=== PATIENT | male | born 1945 | race African-American/Black ===

== ENCOUNTER 2018-03-26 15:36 | Emergency (ER) | payer MEDICARE, MEDICAID ==
[~2018-03-26] VITALS: Ht 180.3 cm; Wt 85.3 kg
[~2018-03-26 15:36] MED LIST: ASPI-1152 PO; ATOR10TA PO; GLIP10TA11 PO; LISI-603 PO; METF-440 PO; TAMS0.4C34 PO
--- NOTE | 2018-03-26 15:41 | NUR ---
BIB SELF, W C/O R HIP PAIN. "THE PAIN STARTED 2 YEARS AGO AND IT GRADUALLY GETS WORSE AND TODAY I CAN HARDLY WALK", WHILE WALKING YESTERDAY, SLIPPED AND FELL. TO ER BED 10, HOOKED TO MONITOR, AWAITING MD LAL
[2018-03-26] MEDS ORDERED: HYDROCODONE/APAP 5/325MG 1 EACH TABLET PO ONE (16:00)
[2018-03-26] MEDS ORDERED: HYDROCODONE/APAP 5/325MG 1 EACH TABLET ONE (16:02)
[2018-03-26 17:00] VITALS: BP 118/70
== END 2018-03-26 17:13 | disposition home or self-care (01) ==
LOC: ER 15:38
DX: M25.551 Pain in right hip (principal); I10 Essential (primary) hypertension; E11.9 Type 2 diabetes mellitus without complications; F32.9 Major depressive disorder, single episode, unspecified; F17.200 Nicotine dependence, unspecified, uncomplicated; Z96.653 Presence of artificial knee joint, bilateral; Z96.643 Presence of artificial hip joint, bilateral; Z79.82 Long term (current) use of aspirin; Z79.84 Long term (current) use of oral hypoglycemic drugs; Z79.899 Other long term (current) drug therapy; W01.198A Fall on same level from slipping, tripping and stumbling with subsequent striking against other object, initial encounter; Y93.89 Activity, other specified; Y92.89 Other specified places as the place of occurrence of the external cause; Y99.8 Other external cause status
CPT/HCPCS: 73502; A4606; Z7610

== ENCOUNTER 2018-05-13 14:04 | Emergency (ER) | payer MEDICAID, MEDICARE ==
[~2018-05-13] VITALS: Ht 182.9 cm; Wt 81.2 kg
[2018-05-13 14:23] VITALS: BP 127/68
[2018-05-13] MEDS ORDERED: HYDROCODONE/APAP 5/325MG 1 EACH TABLET PO ONE (15:00)
[2018-05-13] MEDS ORDERED: HYDROCODONE/APAP 5/325MG 1 EACH TABLET ONE (15:06)
== END 2018-05-13 16:34 | disposition home or self-care (01) ==
LOC: ER 14:10
DX: S20.212A Contusion of left front wall of thorax, initial encounter (principal); I10 Essential (primary) hypertension; E11.9 Type 2 diabetes mellitus without complications; F32.9 Major depressive disorder, single episode, unspecified; F17.200 Nicotine dependence, unspecified, uncomplicated; Z98.890 Other specified postprocedural states; Z79.82 Long term (current) use of aspirin; W22.8XXA Striking against or struck by other objects, initial encounter; Y93.01 Activity, walking, marching and hiking; Y92.89 Other specified places as the place of occurrence of the external cause; Y99.8 Other external cause status
CPT/HCPCS: 71100-TC

== ENCOUNTER 2018-05-16 23:33 | Inpatient (IN) | payer MEDICARE ==
[~2018-05-16] VITALS: Ht 182.9 cm; Wt 81.6 kg
--- NOTE | 2018-05-17 00:30 | NUR ---
PT BBSELF C/O OF CHRONIC HIP PAIN. PT STATES HE HAS NO HOME AND WILL HURT HIMSELF BY OVERDOSING ON DRUGS IF HE GOES BACK TO THE STREETS. PT DENIES HI, DENIES HEARING VOICES. HE STATES HE HAS BEEN OFF HIS MEDS FOR A FEW WEEKS. NO S/S OF ACUTE DISTRESS. RR EVEN AND UNLABORED. PT PLACED ON MONITOR AND POX. PT SAFETY AND COMFORT IN PLACE. SI PRECAUTIONS IN PLACE. WILL CONTINUE TO MONITOR PT. AWAITING MD FOR HALI
--- NOTE | 2018-05-17 00:34 | NUR ---
BEDSIDE FOR EVAL
[2018-05-17 01:51] LABS: EOSINOPHILS % (AUTO) 10.2 % (0.0-6.0); HEMATOCRIT 33 % (39-51); HEMOGLOBIN 10.6 g/dL (13.5-17.5); LYMPHOCYTES % (AUTO) 30.6 % (20.0-44.0); MEAN CORPUSCULAR HGB CONC 32 g/dl (31.0-36.0); MEAN CORPUSCULAR VOLUME 80 fL (80-96); MONOCYTES # (AUTO) 2.8 /CMM (0.1-1.30); MONOCYTES % (AUTO) 42.9 % (2.0-12.0); NEUTROPHILS # (AUTO) 1.1 /CMM (1.8-8.9); NEUTROPHILS % (AUTO) 16.3 % (43.0-81.0); PLATELET COUNT (AUTO) 255 /CMM (150-450); RED BLOOD CELL COUNT(AUTO) 4.17 MIL/uL (4.5-6.0); WHITE BLOOD COUNT (AUTO) 6.6 K/uL (4.3-11.0)
[2018-05-17 02:03] LABS: CALCIUM, SERUM 8.8 mg/dL (8.5-10.1); CARBON DIOXIDE 26 mmol/L (21-32); CHLORIDE 107 mmol/L (98-107); CREATININE 1.3 mg/dL (0.6-1.3); GLUCOSE 140 mg/dL (74-106); POTASSIUM 3.6 mmol/L (3.5-5.1); SODIUM SERUM 142 mmol/L (136-145); UREA NITROGEN, BLOOD 30 mg/dL (7-18)
[2018-05-17 02:12] LABS: APPEARANCE,URINE CLEAR (CLEAR); BILIRUBIN,URINE NEGATIVE (NEGATIVE); BLOOD, URINE TRACE Ery/uL (NEGATIVE); COLOR,URINE YELLOW (YELLOW); KETONES,URINE TRACE (NEGATIVE); LEUKOCYTE ESTERASE ,URINE NEGATIVE (NEGATIVE); NITRITE, URINE NEGATIVE (NEGATIVE); PH,URINE 5.5 (5.0-8.0); PROTEIN,URINE 1+ mg/dl (NEGATIVE); UGLUCOSE NEGATIVE (NEGATIVE); UROBILINOGEN,URINE 0.2 EU/dL (0.2)
[2018-05-17 02:17] LABS: ALANINE AMINOTRANSFERASE 27 U/L (12-78); ALBUMIN 3.7 g/dL (3.4-5.0); ALCOHOL, BLOOD < 3 mg/dL (0-0); ALKALINE PHOSPHATASE 75 U/L (46-116); ASPARTATE AMINOTRANSFERASE 41 U/L (15-37); BILIRUBIN,DIRECT 0.1 mg/dL (0.0-0.2); BILIRUBIN,TOTAL 0.5 mg/dL (0.2-1.0); TOTAL PROTEIN, SERUM 7.2 g/dL (6.4-8.2)
[2018-05-17 02:18] LABS: SALICYLATE 1.1 mg/dL (2.8-20.0)
[2018-05-17 02:19] LABS: ACETAMINOPHEN 0 ug/ml (10-30)
[2018-05-17 02:52] LABS: BACTERIA,URINE Few /HPF (None Seen); RBC,URINE 0-2 /HPF (0-2); SQUAMOUS EPITHELIAL CELL,UR Rare /HPF (None Seen); WBC,URINE 0-2 /HPF (0-3)
--- NOTE | 2018-05-17 03:10 | NUR ---
Patient is resting comfortably in bed with eyes closed. Easily aroused. VSS
--- NOTE | 2018-05-17 05:00 | NUR ---
PSYCHIATRIC ERADICATOR BEDSIDE WITH PT
--- NOTE | 2018-05-17 05:50 | NUR ---
Patient is resting comfortably in bed with eyes closed. Easily aroused. VSS
--- NOTE | 2018-05-17 07:32 | NUR ---
REPORT GIVEN TO ENERGY MANAGER EDSEL FOR M[facility]ER[facility].
--- NOTE | 2018-05-17 07:33 | NUR ---
REPORT GIVEN TO GOLDIE MCALLISTER FOR [facility]
[2018-05-17 08:00] VITALS: BP_SYST 126; BP_SYST 149; BP_DIAS 70; BP_DIAS 91
[2018-05-17] MEDS ORDERED: MAGNESIUM HYDROXIDE 30 ML UDC PO PRN (09:00)
[2018-05-17] MEDS ORDERED: MAG HYDROX/AL HYDROX/SIMETH 30 ML UDC PO PRN (09:00)
[2018-05-17] MEDS ORDERED: ACETAMINOPHEN 325 MG TABLET PO PRN (09:00)
[2018-05-17] MEDS ORDERED: TEMAZEPAM 7.5 MG CAPSULE PO PRN (09:00)
[2018-05-17] MEDS ORDERED: clonazePAM 0.5 MG TABLET PO PRN (09:00)
[2018-05-17 16:00] VITALS: BP 125/59
--- NOTE | 2018-05-17 16:15 | NUR ---
GPS RN NOTE PER MESHA JENSEN, LIU HE WILL DO HOME MEDICATION RECON
[2018-05-17] MEDS ORDERED: DEXTROSE 50%-WATER 50 ML DISP.SYRIN IV PRN (18:00)
[2018-05-17 20:14] VITALS: BP 127/72
[2018-05-17] MEDS: BLOOD SUGAR DIAGNOSTIC 1 EACH STRIP IN SCH (20:49)
[2018-05-17] MEDS: INSULIN REGULAR, HUMAN 100 UNIT/ML 3 ML VIAL SQ PRN (20:53)
[2018-05-17] MEDS ORDERED: QUETIAPINE FUMARATE 100 MG TABLET PO SCH (22:00)
[2018-05-18] MEDS: BLOOD SUGAR DIAGNOSTIC 1 EACH STRIP IN SCH ×2 (07:48→12:41)
[2018-05-18 08:00] VITALS: BP 139/66
[2018-05-18] MEDS ORDERED: LISINOPRIL (20MG) 20 MG TABLET PO SCH (09:00)
[2018-05-18] MEDS ORDERED: QUETIAPINE FUMARATE 25 MG TABLET PO SCH (09:00)
[2018-05-18] MEDS ORDERED: SERTRALINE HCL 50 MG TABLET PO SCH (09:00)
[2018-05-18] MEDS ORDERED: METFORMIN 500 MG TABLET PO SCH (09:00)
[2018-05-18] MEDS ORDERED: ASPIRIN EC 81 MG TABLET.DR PO SCH (09:00)
[2018-05-18] MEDS ORDERED: TAMSULOSIN 0.4 MG CAP.SR.24H PO SCH (09:00)
[2018-05-18] MEDS ORDERED: glipiZIDE 10 MG TABLET PO SCH (09:00)
[2018-05-18] MEDS: INSULIN REGULAR, HUMAN 100 UNIT/ML 3 ML VIAL SQ PRN (09:03)
--- NOTE | 2018-05-18 11:32 | NUR ---
INITIAL DISCHARGE PLAN: Patient will be discharged to a homeless detention as pt has zero days all the way cross. NO HSPT, NO SNF, & NO LRSV & NO MEDI-LIZZETTE.SW will help form a safe and proper discharge in collaboration with .
--- NOTE | 2018-05-18 14:27 | NUR ---
KEVIN contacted [facility] and spoke with Shruti who stated their winter shelters do not accept warm handoffs as they pick people up at different locations and take them to various unidentified winter shelters.
[2018-05-18 16:00] VITALS: BP 147/76
--- NOTE | 2018-05-18 16:00 | NUR ---
DISCHARGE NOTE: Pt was discharged at 1600 to [facility] via public transportation. Pt was given a homeless packet which includes medical/mental health resources and also hot meals/showers resources. Pt was also given referrals to substance abuse programs. Patient was referred to the [address] [address] / and was encouraged to present at 9am on Saturday May 19, 2018. Additional resources included [facility] [id number] [place] [address] and [facility] [address] [place] [address] .The multidisciplinary exitcare form was done, printed, signed, and given to the patient.
--- NOTE | 2018-05-18 16:29 | NUR ---
DC NOTE: PATIENT LEFT THE UNIT AND ESCORTED BY ANGIE AT 1625. PATIENT WAS GIVEN EXIT CARE PACKET, PRESCRIPTIONS, AND TAP CARD TO GET TO FACILITY. PSYCHIATRIST ORDERED DISCHARGE ORDER, DC HOLD, AND MEDS. SET UP TECHNICIAN MADE AWARE. PATIENT SIGNED EXIT PAPERS, BELONGINGS, BUT REFUSED SKIN ASSESSMENT AND PICTURES. PATIENT DENIES SI/HI DURING DISCHARGE.
[2018-05-18] MEDS ORDERED: ATORVASTATIN 10 MG TABLET PO SCH (22:00)
--- NOTE | 2018-06-03 11:11 | NUR ---
15 DAY SUBSTANCE ABUSE FOLLOW UP: unable to follow up due to pt having no phone.
== END 2018-05-18 16:25 | disposition home or self-care (01) | DRG 885 ==
LOC: ER 23:41 → GPS 05-17 08:13
PROVIDERS: ADMIT Psychiatry & Neurology Psychiatry; ATTEND Psychiatry & Neurology Psychiatry
DX: F31.89 Other bipolar disorder (principal); R45.851 Suicidal ideations; I10 Essential (primary) hypertension; E11.9 Type 2 diabetes mellitus without complications; Z59.0 Homelessness; Z79.84 Long term (current) use of oral hypoglycemic drugs; Z96.653 Presence of artificial knee joint, bilateral; Z91.14 Patient's other noncompliance with medication regimen; F19.10 Other psychoactive substance abuse, uncomplicated; Z96.641 Presence of right artificial hip joint
CPT/HCPCS: 36415; 80048-TC; 80076-TC; 80305; 81000-TC; 82962-TC; 85025-TC; 87081-TC; G0480; J1815

== ENCOUNTER 2018-07-04 00:19 | Emergency (ER) | payer MEDICARE ==
[~2018-07-04] VITALS: Ht 182.9 cm; Wt 83.9 kg
--- NOTE | 2018-07-04 00:50 | NUR ---
chronic right hip pain; worst today The patient is also homeless
[2018-07-04] MEDS ORDERED: IBUPROFEN 600 MG TABLET PO ONE ×2 (01:30→02:20)
--- NOTE | 2018-07-04 02:21 | NUR ---
pain meds - motrin given as ordered
--- NOTE | 2018-07-04 03:56 | NUR ---
asleep; no acute events
--- NOTE | 2018-07-04 06:51 | NUR ---
PT ASLEEP, ALL NEEDS MET, AWAITING FOR STEREO MAP PLOTTER OPERATOR.
--- NOTE | 2018-07-04 07:06 | NUR ---
PT HOMELESS PENDING DISCHARGE AFTER SEEING HARNESS PREPARER. PT ASLEEP EASILY AROUSIABLE.
--- NOTE | 2018-07-04 08:52 | NUR ---
PT GIVEN TAP CARD PT STATES HE IS GOING TO [facility]
[2018-07-04 08:53] VITALS: BP 122/58
== END 2018-07-04 08:54 | disposition home or self-care (01) ==
LOC: ER 00:21
DX: G89.29 Other chronic pain (principal); M25.551 Pain in right hip; F17.200 Nicotine dependence, unspecified, uncomplicated; E78.5 Hyperlipidemia, unspecified; N40.0 Benign prostatic hyperplasia without lower urinary tract symptoms; E11.9 Type 2 diabetes mellitus without complications; I10 Essential (primary) hypertension; F31.9 Bipolar disorder, unspecified; Z98.890 Other specified postprocedural states; Z79.82 Long term (current) use of aspirin; Z59.0 Homelessness; Z96.641 Presence of right artificial hip joint
CPT/HCPCS: 73502

== ENCOUNTER 2018-08-16 21:11 | Emergency (ER) | payer MEDICARE, OTHER ==
[~2018-08-16] VITALS: Ht 182.9 cm; Wt 83.9 kg
[2018-08-16 21:35] VITALS: BP 152/79
[2018-08-16] MEDS ORDERED: KETOROLAC TROMETHAMINE 15 MG/ML VIAL ONE (22:00)
[2018-08-16] MEDS ORDERED: KETOROLAC TROMETHAMINE INJ 30 MG/ML VIAL IM ONE (22:00)
== END 2018-08-16 22:17 | disposition home or self-care (01) ==
LOC: ER 21:14
DX: M25.551 Pain in right hip (principal); G89.29 Other chronic pain; I10 Essential (primary) hypertension; F17.200 Nicotine dependence, unspecified, uncomplicated; Z59.0 Homelessness; Z96.641 Presence of right artificial hip joint; Z98.890 Other specified postprocedural states; Z79.82 Long term (current) use of aspirin
CPT/HCPCS: 96372; 99283; J1885